=== PATIENT | male | born 1935 | race Caucasian/White ===

== ENCOUNTER → 2017-01-13 | Outpatient (CLI) | payer MEDICARE ==
--- NOTE | 2017-01-13 12:49 | PCVCIMAG ---
EXAM: BILATERAL CAROTID DUPLEX INDICATION: Carotid Occlusive Disease. FINDINGS: Doppler Measurements (centimeters per second): RIGHT: Peak CCA-85, Peak ECA-117, Diastolic ICA-33, Peak ICA-122, ICA/CCA Ratio-1.4. LEFT: Peak CCA-105, Peak ECA-329, Diastolic ICA-25, Peak ICA-188, ICA/CCA Ratio-1.8. RIGHT CAROTID: The carotid bulb has moderate plaque. The proximal internal carotid artery shows <40% stenosis. The common carotid artery shows no significant stenosis. The external carotid artery shows no significant stenosis. LEFT CAROTID: The carotid bulb has moderately severe plaque. The proximal internal carotid artery shows 60% stenosis. The common carotid artery shows no significant stenosis. The external carotid artery shows 90% stenosis. Antegrade flow in both vertebral arteries. IMPRESSION: <40% stenosis of the right internal carotid artery with moderate plaque. 60% stenosis of the left internal carotid artery with moderately severe plaque. LOC:[place] [id number]
== END | disposition home or self-care (01) ==
LOC: PCVCCLINIC 10:57
PROVIDERS: ATTEND Internal Medicine Cardiovascular Disease
DX: I65.23 Occlusion and stenosis of bilateral carotid arteries (principal); I45.10 Unspecified right bundle-branch block; I25.10 Atherosclerotic heart disease of native coronary artery without angina pectoris; E78.00 Pure hypercholesterolemia, unspecified; I10 Essential (primary) hypertension; E03.9 Hypothyroidism, unspecified; Z79.82 Long term (current) use of aspirin; Z87.891 Personal history of nicotine dependence
CPT/HCPCS: 80061; 93005; 93880; G0463

== ENCOUNTER → 2017-07-20 | Outpatient (CLI) | payer MEDICARE | END | disposition home or self-care (01) | LOC: PCVCCLINIC 11:02 | DX: I25.10 Atherosclerotic heart disease of native coronary artery without angina pectoris (principal); I10 Essential (primary) hypertension; R09.89 Other specified symptoms and signs involving the circulatory and respiratory systems; E78.00 Pure hypercholesterolemia, unspecified; I77.9 Disorder of arteries and arterioles, unspecified; R94.31 Abnormal electrocardiogram [ECG] [EKG]; Z87.891 Personal history of nicotine dependence; Z79.82 Long term (current) use of aspirin; Z79.899 Other long term (current) drug therapy | CPT/HCPCS: 93005; G0463 ==

== ENCOUNTER → 2018-02-25 | Outpatient (CLI) | payer MEDICARE ==
--- NOTE | 2018-02-25 12:00 | PCVCIMAG ---
APPROVED REPORT Indications Stenosis Doppler Spectral Velocity Analysis PSV / EDVPSV / EDV ECA (R) 175 / 10 cm/sECA (L) 541 / 53 cm/s dICA (R) 102 / 23 cm/sdICA (L) 65 / 16 cm/s Esther (R) 127 / 29 cm/smICA (L) 183 / 20 cm/s pICA (R) 143 / 25 cm/spICA (L) 235 / 41 cm/s Bulb (R) 154 / 20 cm/sBulb (L) 273 / 37 cm/s dCCA (R) 114 / 20 cm/sdCCA (L) 116 / 23 cm/s mCCA (R) 125 / 17 cm/smCCA (L) 144 / 21 cm/s Vert (R) 91 / 11 cm/sVert (L) 55 / 13 cm/s ICA/CCA 1.25 ICA/CCA 2.03 Findings The right carotid bulb has moderate calcified plaque. The right proximal internal carotid artery shows 40-50% stenosis. The right common carotid artery shows no significant stenosis. The right external carotid artery shows >50% stenosis. The left carotid bulb has moderately severe calcified plaque. The left proximal internal carotid artery shows 70-90% stenosis. The left common carotid artery shows no significant stenosis. The left external carotid artery shows >90% stenosis. Conclusion 1. Right internal carotid artery stenosis (40-50%) 2. Left internal carotid artery stenosis (70-90%) 3. Antegrade vertebral flow
== END | disposition home or self-care (01) ==
LOC: PCVCIMAG 11:09
PROVIDERS: ATTEND Internal Medicine Cardiovascular Disease
DX: I65.23 Occlusion and stenosis of bilateral carotid arteries (principal); I25.10 Atherosclerotic heart disease of native coronary artery without angina pectoris; I10 Essential (primary) hypertension; E78.00 Pure hypercholesterolemia, unspecified; I45.10 Unspecified right bundle-branch block; I77.9 Disorder of arteries and arterioles, unspecified; R09.89 Other specified symptoms and signs involving the circulatory and respiratory systems; Z87.891 Personal history of nicotine dependence; Z79.82 Long term (current) use of aspirin
CPT/HCPCS: 80061; 93005; 93880; G0463

== ENCOUNTER → 2018-06-09 | Outpatient (CLI) | payer MEDICARE | END | disposition home or self-care (01) | LOC: PCVCCLINIC 13:53 | PROVIDERS: ATTEND Internal Medicine Cardiovascular Disease | DX: I25.10 Atherosclerotic heart disease of native coronary artery without angina pectoris (principal); I77.9 Disorder of arteries and arterioles, unspecified; E78.00 Pure hypercholesterolemia, unspecified; I10 Essential (primary) hypertension; R09.89 Other specified symptoms and signs involving the circulatory and respiratory systems; E03.9 Hypothyroidism, unspecified; Z79.82 Long term (current) use of aspirin; Z72.89 Other problems related to lifestyle; Z87.891 Personal history of nicotine dependence | CPT/HCPCS: 36415; 93005; G0463 ==

== ENCOUNTER → 2018-06-09 | Outpatient (CLI) | payer MEDICARE ==
--- NOTE | 2018-06-09 18:15 | PCVCIMAG ---
EXAM: LEFT CAROTID DUPLEX INDICATION: Carotid Occlusive Disease. FINDINGS: Doppler Measurements (centimeters per second): LEFT: Peak CCA-79, Peak ECA-605, Diastolic ICA-45, Peak ICA-298, ICA/CCA Ratio-3.8. LEFT CAROTID: The carotid bulb has moderately severe plaque. The proximal internal carotid artery shows 80% stenosis. The common carotid artery shows no significant stenosis. The external carotid artery shows 95% stenosis. Antegrade flow in the left vertebral artery. IMPRESSION: 80% stenosis of the left internal carotid artery with moderately severe plaque. The degree of left carotid stenosis has steadily increased compared to December 2016 and February 2018 studies. Further evaluation with conventional angiography may be helpful. LOC:[id number]
== END | disposition home or self-care (01) ==
LOC: PCVCIMAG 14:59
PROVIDERS: ATTEND Internal Medicine
DX: I65.22 Occlusion and stenosis of left carotid artery (principal); I77.9 Disorder of arteries and arterioles, unspecified; R09.89 Other specified symptoms and signs involving the circulatory and respiratory systems
CPT/HCPCS: 93882

== ENCOUNTER → 2018-06-17 | Outpatient (CLI) | payer MEDICARE ==
[~2018-06-17] MED LIST: DIAZEPAM 10 MG TABLET. ONE; IOHEXOL 300 MG/ML 100ML VIAL. ONE; IOHEXOL 350 MG/ML 100 ML VIAL. ONE; IV NORMAL SALINE 500ML BAG 500 ML ONE; LIDOCAINE 1%/EPI 1:100,000 20 ML VIAL. ONE; MIDAZOLAM HCL/PF 2 MG/2 ML VIAL. ONE; fentaNYL PF VIAL 100 MCG/2 ML VIAL ONE; hydrALAZINE 20 MG/ML VIAL. ONE
--- NOTE | 2018-06-17 14:20 | PCVCINTER ---
EXAM: 1. CERVICOEPHALIC ARCH AORTOGRAM. 2. BILATERAL CAROTID ANGIOGRAPHY. 3. LEFT VERTEBROBASILAR ANGIOGRAPHY. 4. BILATERAL RENAL ANGIOGRAPHY. 5. BILATERAL ILEOFEMORAL ANGIOGRAPHY. INDICATION: Carotid occlusive disease. Left subclavian steal. Hypertension. Renal atherosclerosis. Peripheral arterial disease. Leg pain. PROCEDURE: Procedure and risks of the procedures listed above were discussed with the patient and consent obtained. Risks including but not limited to bleeding, infection, stroke, vascular injury, neurologic injury, embolization, allergic reactions, and contrast-induced nephropathy requiring dialysis were discussed as appropriate and consent obtained. Patient was placed on the angiography table. IV conscious sedation was used throughout procedure with appropriate monitoring from 12:15 PM through 1:15 PM. The right groin was prepped and draped in the normal sterile fashion. Ultrasound was used to interrogate the right groin and demonstrate the right common femoral artery. An ultrasound image was saved. Under ultrasound guidance a 21 gauge needle was used to gain access into the right common femoral artery and a 6F vascular sheath was placed. Catheter was placed into the ascending aorta and cervicocephalic aortic arch angiogram performed. Catheter was placed into the suprarenal abdominal aorta and abdominal aortic angiogram performed. Catheter was placed at the aortic bifurcation and bilateral iliofemoral angiography performed. Catheter was placed into the right common carotid artery and right common carotid angiogram performed. Catheter was placed into the left common carotid artery and left common carotid angiogram performed. Catheter was placed into the left subclavian artery and left vertebro-basilar angiogram performed. Catheter was placed into the right renal artery and right renal angiogram performed. Catheter was placed into the left renal artery and left renal angiogram performed. Dr. Draper joined the procedure and he then performed coronary angiography. Please see his separate dictation for full details. Catheters and wires were removed and hemostasis obtained using the FISH device. No immediate complications. FINDINGS: Cervicocephalic arch aortogram: The origins of the great vessels show good patency. Cranial directed flow in both vertebral arteries. The thoracic aortic arch shows no significant abnormality. Right common carotid angiogram: This injection fills the right and left anterior cerebral and the right middle cerebral distribution all of which are unremarkable. The petrous and cavernous carotid arteries are patent. Moderate plaque proximal internal carotid artery causing only minimal stenosis. The common and external carotid arteries are patent. Left common carotid angiogram: This injection fills the left anterior and middle cerebral distributions which are otherwise unremarkable. The petrous and cavernous internal carotid artery is patent. Extensive irregular plaque distal common carotid artery and at the origin of the internal carotid artery results in 80% stenosis. 80% stenosis also present at the origin of the external carotid artery. Left vertebrobasilar angiogram: The left vertebral artery is patent. The basilar artery and both posterior cerebral arteries are patent. Abdominal aortogram: There is one right and one left renal artery. Moderate plaque mid and distal infrarenal aorta without significant stenosis. Right renal angiogram: Minimal plaque proximal vessel does not cause significant stenosis. Left renal angiogram: Minimal plaque proximal vessel does not cause significant stenosis. Bilateral iliofemoral angiogram: Minimal plaque right and left common iliac and external iliac arteries without significant stenosis. Both internal iliac arteries are patent. The right and left common femoral and profunda femoral arteries are patent as are the visualized portion of the upper superficial femoral arteries bilaterally. IMPRESSION: Extensive irregular plaque at the junction of the left common and internal carotid artery results in 80% stenosis. Patient will be referred to Dr. Smith for surgical endarterectomy. Minimal stenosis right cervical internal carotid artery. LOC:[id number]
--- NOTE | 2018-06-17 17:56 | PCVCINTER ---
APPROVED REPORT Study performed: 06/17/2018 13:16:40 Patient Details Patient Status: Out-Patient Room #: 3 The patient is a 82 year-old Male Event Personnel Heber Thompson RT(R), Flory Daly RT(R)(), Robert Rose RN Risk Factors Arterial HypertensionDysplipidemia (Type: 1), Hypercholesterolemia, Last Creatanine 1Tobacco History (Former) Previous Procedures/Diagnoses Previous PCI, Previous Femoral Procedure Procedure Narrative The right coronary system was accessed and visualized with a JR4 catheter. The left coronary system was accessed and visualized with a JL4 catheter. The left ventricle was accessed and visualized with a Straight Pigtail catheter. Left ventriculogram was performed in SOLARES projection. Closure device was deployed with a 6 Fr FISH. Hemostasis was obtained with manual pressure following sheath removal without any complications. The patient tolerated the procedure well and there were no complications associated with the procedure. There was no hematoma. Hemodynamics The aortic pressure is 156/75 mmHg with a mean of 91 mmHg. The left ventricular pressure is 112/2 mmHg with a mean of -9 mmHg. Conclusion #1 normal left ventricular size and systolic function EF 60% #2 small left main with calcification no occlusive disease giving rise to LAD and circumflex #3 LAD is also moderately calcified and diffusely disease. 4050% proximal and proximal mid vessel lesions are noted well-preserved vessel this distal half that extends around the apex. #4 small and diffusely diseased nondominant circumflex artery no occlusive disease ostial circumflex of 50% #5 a dominant right coronary artery with an eccentric 60% proximal lesion and a tortuous segment moderately disease in the middle third giving rise to PDA and VANCE well preserved Recommendations and plan: Continue aggressive risk factor modification. No indication for coronary intervention. Okay for carotid endarterectomy.
== END | disposition home or self-care (01) ==
LOC: PCVCINTER 10:48
PROVIDERS: ATTEND Internal Medicine Cardiovascular Disease
DX: I65.23 Occlusion and stenosis of bilateral carotid arteries (principal); I25.10 Atherosclerotic heart disease of native coronary artery without angina pectoris; I70.1 Atherosclerosis of renal artery; I10 Essential (primary) hypertension; E78.00 Pure hypercholesterolemia, unspecified; E03.9 Hypothyroidism, unspecified; Z98.890 Other specified postprocedural states; Z82.49 Family history of ischemic heart disease and other diseases of the circulatory system; Z72.89 Other problems related to lifestyle; Z79.82 Long term (current) use of aspirin; Z79.899 Other long term (current) drug therapy; Z87.891 Personal history of nicotine dependence
CPT/HCPCS: 36223; 36225; 36252; 75630; 76937; 93458; 99152; 99153; C1725; C1751; C1760; C1769; C1894; J0360; J1644; J2250; J3010; J3490; J7040; Q9967

== ENCOUNTER → 2018-08-29 | Outpatient (CLI) | payer MEDICARE | END | disposition home or self-care (01) | LOC: PCVCCLINIC 14:24 | PROVIDERS: ATTEND Internal Medicine Cardiovascular Disease | DX: I25.10 Atherosclerotic heart disease of native coronary artery without angina pectoris (principal); I10 Essential (primary) hypertension; E78.00 Pure hypercholesterolemia, unspecified; E03.9 Hypothyroidism, unspecified; Z98.890 Other specified postprocedural states; Z79.82 Long term (current) use of aspirin; Z87.891 Personal history of nicotine dependence | CPT/HCPCS: 93005; G0463 ==

== ENCOUNTER → 2018-12-21 | Outpatient (CLI) | payer MEDICARE ==
--- NOTE | 2018-12-21 15:15 | PCVCIMAG ---
EXAM: BILATERAL CAROTID DUPLEX INDICATION: Carotid Occlusive Disease. FINDINGS: Doppler Measurements (centimeters per second): RIGHT: Peak CCA-104, Peak ECA-137, Diastolic ICA-27, Peak ICA-145, ICA/CCA Ratio-1.4. LEFT: Peak CCA-114, Peak ECA-214, Diastolic ICA-23, Peak ICA-78, ICA/CCA Ratio-0.7. RIGHT CAROTID: The carotid bulb has moderate plaque. The proximal internal carotid artery shows 40-50% stenosis. The common carotid artery shows no significant stenosis. The external carotid artery shows 40% stenosis. LEFT CAROTID: The carotid bulb has no significant plaque. The proximal internal carotid artery shows no significant stenosis. The common carotid artery shows no significant stenosis. The external carotid artery shows no significant stenosis. Antegrade flow in both vertebral arteries. IMPRESSION: 40-50% stenosis of the right internal carotid artery with moderate plaque. No significant stenosis of the left internal carotid artery with no significant plaque. LOC:[place] [id number]
== END | disposition home or self-care (01) ==
LOC: PCVCIMAG 13:22
PROVIDERS: ATTEND Internal Medicine Cardiovascular Disease
DX: I65.23 Occlusion and stenosis of bilateral carotid arteries (principal); I25.10 Atherosclerotic heart disease of native coronary artery without angina pectoris; I45.10 Unspecified right bundle-branch block; I10 Essential (primary) hypertension; E78.00 Pure hypercholesterolemia, unspecified; R94.31 Abnormal electrocardiogram [ECG] [EKG]; E03.9 Hypothyroidism, unspecified; Z79.82 Long term (current) use of aspirin; Z98.890 Other specified postprocedural states; Z87.891 Personal history of nicotine dependence; Z79.899 Other long term (current) drug therapy
CPT/HCPCS: 36415; 80061; 93005; 93880; G0463